=== PATIENT | male | born 1960 | race African-American/Black ===

== ENCOUNTER 2022-11-01 15:34 | Outpatient (CLI) | payer MEDICARE ==
[2022-11-01 17:00] LABS: Bilirubin Neg (Negative); Blood, Urine 10 (Negative); Clarity Clear (Clear); Glucose, Urine (Dipstick) Normal (Negative); Ketone, Urine Negative (Negative); Leukocyte Negative (Negative); Nitrite Negative (Negative); Protein, Urine (Dipstick) Negative (Neg-Trace); Specific Gravity, Urine 1.005 (1.005-1.030); Urobilinogen Normal mg/dL (Less than 2)
[2022-11-01 17:11] LABS: PTT 27.9 sec (22.0-33.0); Prothrombin Time 10.7 sec (9.5-12.1)
[2022-11-01 17:12] LABS: Bacteria/HPF None Seen HPF (None Seen); RBC/HPF 0-3 HPF (0-3); Squamous Epithelial 0-3 HPF (0-3); WBC/HPF None Seen HPF (0-3)
[2022-11-01 17:15] LABS: Anion Gap 16 mmol/L (10-20); BUN (Urea Nitrogen) 17 mg/dL (8.4-25.7); Calc. Creatinine Clearance 0 mL/min (70-130); Calcium 9.3 mg/dL (7.8-10.44); Carbon Dioxide 30 mmol/L (23-31); Chloride 95 mmol/L (98-107); Estimated GFR 62; Glucose 93 mg/dL (80-115); Hematocrit 40.9 % (38.8-50.0); Hemoglobin 13.7 g/dL (13.5-17.5); Mean Corpuscular HGB CONC 33.5 g/dL (32.0-36.0); Mean Corpuscular Hemoglobin 33.2 pg (27.0-33.0); Mean Platelet Volume 9.1 fl (7.4-10.4); Platelet Count 280 10x3/uL (150-450); Potassium 2.8 mmol/L (3.5-5.1); Red Blood Cell (RBC) Count 4.13 10x6/uL (4.32-5.72); Sodium 138 mmol/L (136-145); White Blood Cell (WBC) Count 6.6 10x3/uL (3.5-10.5)
== END 2022-11-01 15:35 | disposition home or self-care (01) ==
LOC: LABBT 15:34
PROVIDERS: ATTEND Urology
DX: Z01.818 Encounter for other preprocedural examination (principal); N47.1 Phimosis
CPT/HCPCS: 80048; 81001; 85027; 85610; 85730; 87086; 93005; 93010

== ENCOUNTER 2022-11-08 09:51 | Day surgery (SDC) | payer OTHER ==
[2022-11-01 16:46] VITALS: BMI 25.4
[2022-11-08] MEDS ORDERED: fentaNYL PF 100 MCG/2 ML SYRINGE ONE (12:57)
[2022-11-08] MEDS ORDERED: Bacitracin Zinc Ointment 30 gm TUBE ONE (13:00)
[2022-11-08] MEDS ORDERED: Bupivacaine HCl 0.5%/Epinephrine 1:200,000/PF 30 ml Vial ONE (13:00)
[2022-11-08] MEDS ORDERED: Bupivacaine PF 0.5% 30 ML VIAL ONE (13:01)
[2022-11-08] MEDS ORDERED: CEFAZOLIN 1 GM VIAL ONE (13:13)
[2022-11-08] MEDS ORDERED: Sodium Chloride 0.9% 100 ML ONE (13:13)
[2022-11-08] MEDS ORDERED: Ondansetron PF 4 MG/2 ML Vial ONE (13:25)
[2022-11-08] MEDS ORDERED: Glycopyrrolate 0.2 MG/ML 5 ML SYRINGE ONE (13:25)
[2022-11-08] MEDS ORDERED: PROPOFOL 200 MG/20 ML VIAL ONE (13:25)
[2022-11-08] MEDS ORDERED: Bupivacaine 0.25% HCL 30 ML VIAL ONE (13:40)
== END 2022-11-08 16:20 | disposition home or self-care (01) ==
LOC: SDC 09:51
PROVIDERS: ATTEND Urology
PROC: 0VTTXZZ Resection of Prepuce, External Approach (ICD-10-PCS; principal; 2022-11-08)
DX: N47.1 Phimosis (principal); L43.2 Lichenoid drug reaction; I10 Essential (primary) hypertension; E78.00 Pure hypercholesterolemia, unspecified; Z98.890 Other specified postprocedural states; F17.210 Nicotine dependence, cigarettes, uncomplicated; Z79.899 Other long term (current) drug therapy
CPT/HCPCS: 88304; J0690; J2405; J2704; J3490; S0020